=== PATIENT | female | born 1980 | race Caucasian/White ===

== ENCOUNTER 2018-12-12 22:03 | Emergency (ER) | payer SELFPAY ==
[~2018-12-12] VITALS: Ht 157.5 cm; Wt 54.4 kg
--- NOTE | 2018-12-12 22:20 | NUR ---
PT BIBRA FOR ETOH. PT RESPIRATIONS EVEN AND UNLABORED. 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 NAD NOTED AT THIS TIME.
--- NOTE | 2018-12-13 01:00 | NUR ---
PT RESTING IN BED, NAD NOTED. WILL CONTINUE TO MONITOR.
--- NOTE | 2018-12-13 03:46 | NUR ---
PT AMBULATORY WITH STEADY GAIT. Patient is awake and alert to self, day, and place.
--- NOTE | 2018-12-13 05:41 | NUR ---
Jhoana apple in ED - 12/13/18 at 0543 by FOR[facility] Patient discharged to home in stable condition. Written and verbal after care instructions given. Patient verbalizes understanding of instruction. PT AMBULATORY WITH STEADY GAIT.
[2018-12-13 05:42] VITALS: BP 133/84
--- NOTE | 2018-12-13 05:42 | NUR ---
Patient given written and verbal discharge instructions. Patient verbalizes understanding of instructions. Patient is ambulatory with steady gait. Refuses offer of snf placement. Patient given list of available shelters in surrounding area.
== END 2018-12-13 05:42 | disposition home or self-care (01) ==
LOC: ER 22:07
DX: F10.129 Alcohol abuse with intoxication, unspecified (principal); R41.82 Altered mental status, unspecified; Y90.9 Presence of alcohol in blood, level not specified
CPT/HCPCS: 36415; 70450-TC; 82962-TC; 84702-TC